=== PATIENT | male | born 1975 | race Caucasian/White ===

== ENCOUNTER → 2017-01-11 | Outpatient (REF) ==
--- NOTE | 2017-01-11 12:06 | DI ---
EXAM: Chest two view, frontal and lateral views. HISTORY: Employment screening. COMPARISON: 01/23/2015. FINDINGS: The heart size is normal. There is no pulmonary vascular congestion. The lungs are puneet r. No pleural effusion or pneumothorax is seen. No acute osseous abnormality identified. Since prior study, there has been no significant interval change. IMPRESSION: No acute cardiopulmonary process.
== END ==
LOC: RAD 10:56
DX: Z02.89 Encounter for other administrative examinations (principal)